=== PATIENT | female | born 1975 | race American Indian/Alaskan Native ===

== ENCOUNTER 2021-08-28 21:26 | Emergency (ER) | payer SELFPAY ==
[2021-08-29] MEDS ORDERED: IBUPROFEN 800 MG TAB PO ONE (03:56)
--- NOTE | 2021-08-29 04:22 | XRay Report ---
XR chest routine 2V INDICATION / CLINICAL INFORMATION: chest pain. COMPARISON: None available. FINDINGS: SUPPORT DEVICES: None. HEART /PULMONARY VASCULATURE: No significant abnormality. LUNGS / PLEURA: No significant pulmonary or pleural abnormality. No pneumothorax. ADDITIONAL FINDINGS: No significant additional findings. IMPRESSION: 1. No acute findings. Signer Name: Hira Bush MD Signed: 08/29/2021 4:17 AM Workstation Name: [id number]
[2021-08-29 04:39] LABS: Basophils % (Auto) 0.4 % (0.0-1.8); Eosinophils # (Auto) 0.3 K/mm3 (0.0-0.4); Eosinophils % (Auto) 3.8 % (0.0-4.3); Hematocrit 34.1 % (30.3-42.9); Hemoglobin 10.5 gm/dl (10.1-14.3); Lymphocytes # (Auto) 1.7 K/mm3 (1.2-5.4); Lymphocytes % (Auto) 21.3 % (13.4-35.0); Mean Corpuscular HGB Conc 31 % (30-34); Mean Corpuscular Volume 70 fl (79-97); Monocytes % (Auto) 12.4 % (0.0-7.3); Platelet Count 213 K/mm3 (140-440); Red Blood Count 4.86 M/mm3 (3.65-5.03); Red Cell Distribution Width 17.5 % (13.2-15.2)
--- NOTE | 2021-08-29 05:01 | Emergency Department Report ---
ED General Adult HPI - General Chief complaint: Upper Respiratory Infection Stated complaint: CHEST PAIN Time Seen by Provider: 08/29/21 03:55 Source: patient Mode of arrival: Ambulatory Limitations: No Limitations - History of Present Illness Initial comments: Patient 46-year-old female with history of COVID 1 year ago who presents for cough malaise fever for one 1 week. States cough is productive clear there is no wheezing or stridor. Cough is causing flank pain with cough. There is no nausea no vomiting no dizziness or lightheadedness. Symptoms are exacerbated by activity. Symptoms are relieved by nothing tried. - Related Data Previous Rx's Medication Instructions Recorded Last Taken Type Ferrous Sulfate [Feosol 325 MG tab] 325 mg PO DAILY #30 tablet 02/28/18 Unknown Rx Ibuprofen [Motrin] 800 mg PO Q8HR PRN #30 tablet 02/28/18 Unknown Rx medroxyPROGESTERone ACETATE 10 mg PO QDAY #10 tablet 02/28/18 Unknown Rx [Provera] Albuterol Mdi (or & Nicu Only) 2 puff IH QID PRN #8.5 gram 08/29/21 Unknown Rx [ProAir HFA Inhaler] Ibuprofen [Motrin 800 MG tab] 800 mg PO Q8HR PRN #30 tablet 08/29/21 Unknown Rx predniSONE [Deltasone] 40 mg PO QDAY 5 Days #10 tab 08/29/21 Unknown Rx Allergies Allergy/AdvReac Type Severity Reaction Status Date / Time No Known Allergies Allergy Verified 03/07/14 00:46 ED Review of Systems ROS: Stated complaint: CHEST PAIN Other details as noted in HPI Constitutional: chills, fever, malaise Eyes: denies: eye pain, eye discharge, vision change ENT: throat pain, congestion. denies: ear pain Respiratory: cough, shortness of breath. denies: wheezing Cardiovascular: chest pain (Chest wall pain with cough). denies: palpitations, orthopnea Endocrine: no symptoms reported Gastrointestinal: denies: abdominal pain, nausea, vomiting, diarrhea Genitourinary: denies: urgency, dysuria, frequency, hematuria, discharge Musculoskeletal: denies: back pain, joint swelling, arthralgia Skin: denies: rash, lesions Neurological: denies: headache, weakness, numbness, paresthesias, confusion, ascencion tigo Psychiatric: denies: anxiety, depression Hematological/Lymphatic: denies: easy bleeding, easy bruising ED Past Medical Hx - Past Medical History Hx Congestive Heart Failure: No Hx Diabetes: Yes Hx Asthma: No Hx COPD: No Hx HIV: No Additional medical history: pvd. Palptations - Surgical History Additional Surgical History: tubal ligation - Social History Smoking Status: Never Smoker Substance Use Type: None - Medications Home Medications: Home Medications Medication Instructions Recorded Confirmed Last Taken Type Ferrous Sulfate [Feosol 325 MG tab] 325 mg PO DAILY #30 tablet 02/28/18 Unknown Rx Ibuprofen [Motrin] 800 mg PO Q8HR PRN #30 tablet 02/28/18 Unknown Rx medroxyPROGESTERone ACETATE 10 mg PO QDAY #10 tablet 02/28/18 Unknown Rx [Provera] Albuterol Mdi (or & Nicu Only) 2 puff IH QID PRN #8.5 gram 08/29/21 Unknown Rx [ProAir HFA Inhaler] Ibuprofen [Motrin 800 MG tab] 800 mg PO Q8HR PRN #30 tablet 08/29/21 Unknown Rx predniSONE [Deltasone] 40 mg PO QDAY 5 Days #10 tab 08/29/21 Unknown Rx ED Physical Exam - General Limitations: No Limitations General appearance: alert, in no apparent distress - Head Head exam: Present: normocephalic, normal inspection - Eye Eye exam: Present: PERRL, EOMI. Absent: conjunctival injection, nystagmus Pupils: Present: normal accommodation - ENT ENT exam: Present: normal orophraynx, mucous membranes moist, TM's normal bilaterally, normal external ear exam - Neck Neck exam: Present: normal inspection, full ROM. Absent: tenderness, lymphadenopathy, thyromegaly - Respiratory Respiratory exam: Present: normal lung sounds bilaterally, chest wall tenderness (Right anterior lateral chest wall reproducible to deep palpation no crepitus no ecchymosis no step-off). Absent: respiratory distress, wheezes, stridor - Cardiovascular Cardiovascular Exam: Present: regular rate, normal rhythm, normal heart sounds. Absent: systolic murmur, diastolic murmur, rubs, gallop - GI/Abdominal GI/Abdominal exam: Present: soft, normal bowel sounds. Absent: distended, tenderness, guarding, rebound, rigid, bruit, hernia - Rectal Rectal exam: Present: deferred - Extremities Exam Extremities exam: Present: normal inspection, full ROM, normal capillary refill - Back Exam Back exam: Present: normal inspection, full ROM. Absent: CVA tenderness (R), CVA tenderness (L) - Neurological Exam Neurological exam: Present: alert, oriented X3, CN II-XII intact - Expanded Neurological Exam Expanded Patient oriented to: Present: person, place, time Speech: Present: fluid speech Motor strength exam: RUE: 5, LUE: 5, RLE: 5, LLE: 5 Best Eye Response ([place]): (4) open spontaneously Best Motor Response ([place]): (6) obeys commands Best Verbal Response ([place]): (5) oriented Corinne Total: 15 - Psychiatric Psychiatric exam: Present: normal affect, normal mood - Skin Skin exam: Present: warm, dry, intact, normal color. Absent: rash ED Course Vital Signs 08/28/21 21:41 Temperature 100.9 F H Pulse Rate 86 Respiratory 20 Rate Blood Pressure 178/91 O2 Sat by Pulse 97 Oximetry ED Medical Decision Making - Lab Data Result diagrams: 08/29/21 04:15 08/29/21 04:15 Labs 08/29/21 04:15 WBC 7.8 RBC 4.86 Hgb 10.5 Hct 34.1 MCV 70 L MCH 22 L MCHC 31 RDW 17.5 H Plt Count 213 Lymph % (Auto) 21.3 Sampson % (Auto) 12.4 H Eos % (Auto) 3.8 Baso % (Auto) 0.4 Lymph # (Auto) 1.7 Sampson # (Auto) 1.0 H Eos # (Auto) 0.3 Baso # (Auto) 0.0 Seg Neutrophils % 62.1 Seg Neutrophils # 4.8 - EKG Data EKG shows normal: sinus rhythm, axis, QRS complexes Rate: normal - EKG Data When compared to previous EKG there are: previous EKG unavailable Interpretation: nonspecific ST-T wave carlos, other (Sinus rhythm borderline prolonged MO interval probable left atrial enlargement no ST elevated WI interpreted by ED attending.) - Radiology Data Radiology results: report reviewed, image reviewed XR chest routine 2V INDICATION / CLINICAL INFORMATION: chest pain. COMPARISON: None available. FINDINGS: SUPPORT DEVICES: None. HEART /PULMONARY VASCULATURE: No significant abnormality. LUNGS / PLEURA: No significant pulmonary or pleural abnormality. No pneumothorax. ADDITIONAL FINDINGS: No significant additional findings. IMPRESSION: 1. No acute findings. Signer Name: Shahab Yeboah MD Signed: 08/29/2021 4:17 AM Workstation Name: [id number] Transcribed By: ISSAC Dictated By: SHAHAB YEBOAH MD Electronically Authenticated By: SHAHAB YEBOAH MD Signed Date/Time: 08/29/21416 DD/ 6 TD/TT: - Medical Decision Making Heart score is 0, chest x-ray normal no infiltrates no opacities, EKG normal sinus rhythm probable left atrial enlargement borderline prolonged MO interval. No ST elevated WI interpreted by ED attending. Labs noted normal. This is likely URI Viral. Symptoms are improved there is no fever at this time plan refill albuterol inhaler for as needed use, short burst steroids, NSAIDs as needed pain. Follow-up with primary care doctor in 2 to 3 days. Return to emergency department should symptoms worsen. Patient verbalized agreement understanding discharge plan. Patient DC'd home in stable condition at this time. Critical care attestation.: If time is entered above; I have spent that time in minutes in the direct care of this critically ill patient, excluding procedure time. ED Disposition Clinical Impression: URI (upper respiratory infection) Qualifiers: URI type: unspecified viral URI Qualified Code(s): J06.9 - Acute upper respiratory infection, unspecified Disposition: 01 HOME / SELF CARE / HOMELESS Is pt being admited?: No Does the pt Need Aspirin: No Condition: Stable Instructions: Viral Respiratory Infection Additional Instructions: Take medications as prescribed, follow-up with your doctor in 2 to 3 days. Return to emergency department should symptoms worsen. Prescriptions: predniSONE [Deltasone] 40 mg PO QDAY 5 Days #10 tab Ibuprofen [Motrin 800 MG tab] 800 mg PO Q8HR PRN #30 tablet PRN Reason: pain fever Albuterol Mdi (or & Nicu Only) [ProAir HFA Inhaler] 2 puff IH QID PRN #8.5 gram PRN Reason: Shortness Of Breath Referrals: JOHN VALLEJO MD [Primary Care Provider] - 3-5 Days Forms: Work/School Release Form(ED) Time of Disposition: 07:04
[2021-08-29 05:10] LABS: Alanine Aminotransferase 18 units/L (7-56); Albumin 3.8 g/dL (3.9-5); Blood Urea Nitrogen 11 mg/dL (7-17); Calcium 8.9 mg/dL (8.4-10.2); Hemolysis Index 20
[2021-08-29 05:11] LABS: BUN/Creatinine Ratio 16
[2021-08-29 06:53] LABS: Bilirubin,Urine NEG (Negative); Blood,Urine NEG (Negative); Color,Urine Colorless (Yellow); Protein,Urine <15 mg/dL mg/dL (Negative); Urobilinogen,Urine < 2.0 mg/dL (<2.0)
[2021-08-29 06:58] LABS: RBC,Urine < 1.0 /HPF (0.0-6.0); WBC,Urine < 1.0 /HPF (0.0-6.0)
[2021-08-29 07:11] VITALS: BP 171/86
--- NOTE | 2021-08-29 11:39 | Electrocardiograph Report ---
[facility] Test Date: 2021-08-28 Test Time: 21:34:29 Pat Name: RICHARD CLAY Department: Room: Gender: F Junior Project Manager: : 1975 Requested By: NADEGE COCHRAN Order Number: [id number] Reading MD: Monty Awad Measurements Intervals Converse Rate: 85 P: 50 MI: 203 QRS: 41 QRSD: 82 T: 32 QT: 368 QTc: 437 Interpretive Statements Sinus rhythm Borderline prolonged MI interval Probable left atrial enlargement No previous ECG available for comparison Electronically Signed On 08-29-2021 11:39:26 EDT by Monty Awad
== END 2021-08-29 07:11 | disposition home or self-care (01) ==
LOC: ED 21:26
DX: J06.9 Acute upper respiratory infection, unspecified (principal); E11.9 Type 2 diabetes mellitus without complications; Z98.51 Tubal ligation status; Z79.899 Other long term (current) drug therapy
CPT/HCPCS: 36415; 71046; 80053; 81001; 84484; 85025; 93005; 99284